=== PATIENT | female | born 1960 | race Native Hawaiian/Other Pacific Islander ===

== ENCOUNTER 2020-06-18 13:44 | Emergency (ER) | payer MEDICARE ==
--- NOTE | 2020-06-18 14:42 | Event Note ---
ED Screening Note Date of service: 06/18/20 Time: 14:41 ED Screening Note: Patient presents with bilateral plantar foot pain and an ulcer to the right lateral great toe. She is being followed by toddler guide Dr. Kulkarni. She reports pain is been increasing over the past day. This initial assessment/diagnostic orders/clinical plan/treatment(s) is/are subject to change based on patients health status, clinical progression and re- assessment by fellow clinical providers in the ED. Further treatment and workup at subsequent clinical providers discretion. Patient/guardian urged not to elope from the ED as their condition may be serious if not clinically assessed and managed. Initial orders include: CBC, CMP, CRP, foot x-ray
--- NOTE | 2020-06-18 15:27 | XRay Report ---
HISTORY:diabetic ulcer right great toe COMPARISON: None. TECHNIQUE: AP lateral and obliques views of both feet were obtained FINDINGS: Bones: No fracture or dislocation. Joint spaces: Maintained. Soft tissues: No significant abnormality. Additional findings: None. IMPRESSION: 1. No significant abnormality. Signer Name: Jean Carlos Larose MD Signed: 06/18/2020 3:23 PM Workstation Name: [id number]
[2020-06-18 15:54] LABS: Basophils % (Auto) 0.4 % (0.0-1.8); Eosinophils # (Auto) 0.1 K/mm3 (0.0-0.4); Eosinophils % (Auto) 0.7 % (0.0-4.3); Hematocrit 32.8 % (30.3-42.9); Hemoglobin 11.1 gm/dl (10.1-14.3); Lymphocytes # (Auto) 1.4 K/mm3 (1.2-5.4); Lymphocytes % (Auto) 14.4 % (13.4-35.0); Mean Corpuscular HGB Conc 34 % (30-34); Mean Corpuscular Volume 85 fl (79-97); Monocytes # (Auto) 0.6 K/mm3 (0.0-0.8); Monocytes % (Auto) 6.2 % (0.0-7.3); Platelet Count 398 K/mm3 (140-440); Red Blood Count 3.87 M/mm3 (3.65-5.03); Red Cell Distribution Width 13.1 % (13.2-15.2)
[2020-06-18 16:29] LABS: Alanine Aminotransferase 17 units/L (7-56); Albumin 3.8 g/dL (3.9-5); BUN/Creatinine Ratio 29; Blood Urea Nitrogen 23 mg/dL (7-17); Calcium 9.3 mg/dL (8.4-10.2); Hemolysis Index 3
[2020-06-18] MEDS ORDERED: INSULIN REGULAR, HUMAN 100 UNIT/ML 3ML VIAL SUB-Q ONE (16:37)
--- NOTE | 2020-06-18 16:40 | Emergency Department Report ---
HPI - General Chief Complaint: Extremity Problem,Nontraumatic Time Seen by Provider: 06/18/20 16:00 - HPI HPI: This is a 59-year-old female who presents to the emergency department with complaint of bilateral foot pain, left greater than right, that started this morning. She denies any swelling of the feet, rash, lesions. She denies any fall, trauma or obvious inciting injury. The patient has a history of diabetes, coronary artery disease with cardiac stents. She is currently being seen by her associate store leader, Dr. Kulkarni, and is taking antibiotics, secondary to a ulcer on her right great toe. Otherwise, the patient has not taken anything for symptoms prior to presentation today. The pain worsens when she is walking or bearing weight. No known alleviating factors. She denies any fever. No recent travel or sick contacts at home. ED Past Medical Hx - Past Medical History Previous Medical History?: Yes Hx Diabetes: Yes - Surgical History Past Surgical History?: Yes Additional Surgical History: Cardiac stents. - Medications Home Medications: Home Medications Medication Instructions Recorded Confirmed Last Taken Type Gabapentin 300 mg PO BID #12 cap 06/18/20 Unknown Rx ED Review of Systems ROS: Stated complaint: FOOT PAINS RT Other details as noted in HPI Comment: All other systems reviewed and negative Constitutional: denies: chills, fever Respiratory: denies: shortness of breath Cardiovascular: denies: chest pain Gastrointestinal: denies: abdominal pain, vomiting Musculoskeletal: arthralgia. denies: joint swelling Skin: denies: rash, lesions Neurological: denies: weakness, numbness Physical Exam - Physical Exam Physical Exam: GENERAL: The patient is well-developed well-nourished. HENT: Normocephalic. Atraumatic. Patient has moist mucous membranes. EYES: Extraocular motions are intact. NECK: Supple. Trachea is midline. CHEST/LUNGS: Clear to auscultation. There is no respiratory distress noted. HEART/CARDIOVASCULAR: Regular. There is no tachycardia. There is no murmur. ABDOMEN: Abdomen is soft, nontender. Patient has normal bowel sounds. SKIN: Skin is warm and dry. No appreciable edema or erythema. NEURO: The patient is awake, alert, and oriented. The patient is cooperative. The patient has no focal neurologic deficits. Normal speech. MUSCULOSKELETAL: There is reproducible tenderness to palpation to the bilateral feet. +2/4 dorsalis pedis pulse and capillary refill less than 2 seconds bilaterally. There is no limitation range of motion. ED Course - Reevaluation(s) Reevaluation #1: 06/18/20 19:53 Lab Results 06/18/20 06/18/20 Range/Units 15:25 15:25 WBC 9.9 (4.5-11.0) K/mm3 RBC 3.87 (3.65-5.03) M/mm3 Hgb 11.1 (10.1-14.3) gm/dl Hct 32.8 (30.3-42.9) % MCV 85 (79-97) fl MCH 29 (28-32) pg MCHC 34 (30-34) % RDW 13.1 L (13.2-15.2) % Plt Count 398 (140-440) K/mm3 Lymph % (Auto) 14.4 (13.4-35.0) % Preston % (Auto) 6.2 (0.0-7.3) % Eos % (Auto) 0.7 (0.0-4.3) % Baso % (Auto) 0.4 (0.0-1.8) % Lymph # (Auto) 1.4 (1.2-5.4) K/mm3 Preston # (Auto) 0.6 (0.0-0.8) K/mm3 Eos # (Auto) 0.1 (0.0-0.4) K/mm3 Baso # (Auto) 0.0 (0.0-0.1) K/mm3 Seg Neutrophils % 78.3 H (40.0-70.0) % Seg Neutrophils # 7.8 H (1.8-7.7) K/mm3 Sodium 136 L (137-145) mmol/L Potassium 4.8 (3.6-5.0) mmol/L Chloride 96.5 L (98-107) mmol/L Carbon Dioxide 30 (22-30) mmol/L Anion Gap 14 mmol/L BUN 23 H (7-17) mg/dL Creatinine 0.8 (0.6-1.2) mg/dL Estimated GFR > 60 ml/min BUN/Creatinine Ratio 29 % Glucose 361 H (65-100) mg/dL Calcium 9.3 (8.4-10.2) mg/dL Total Bilirubin < 0.20 (0.1-1.2) mg/dL AST 12 (5-40) units/L ALT 17 (7-56) units/L Alkaline Phosphatase 95 (35-129) units/L C-Reactive Protein 2.30 H (0.00-1.30) mg/dL Total Protein 7.2 (6.3-8.2) g/dL Albumin 3.8 L (3.9-5) g/dL Albumin/Globulin Ratio 1.1 % ED Medical Decision Making - Lab Data Result diagrams: 06/18/20 15:25 06/18/20 15:25 - Radiology Data Radiology results: image reviewed interpreted by me: X-ray of the bilateral feet does not show any fracture, dislocation, signs of osteomyelitis, or any other acute process. - Medical Decision Making This patient presents to the emergency department with complaint of bilateral foot pain with left greater than right. Patient appears neurovascularly intact. She has palpable dorsalis pedis pulses bilaterally, good capillary refill to the distal toes. There is no erythema, rash or lesion, appreciable edema, and this does not appear consistent with any DVT. Since there is good distal pulses and cap refill, this is not appear consistent with any acute arterial insufficiency. Given the patient's history of diabetes, I believe it may be consistent with diabetic and/or peripheral neuropathy. X-rays were done of the feet that does not show any fracture, dislocation or signs of osteomyelitis. The patient's labs are mostly unremarkable except for hyperglycemia with a blood sugar of about 360. There is no elevation in the anion gap and this does not appear consistent with diabetic ketoacidosis. Patient was given a dose of subcutaneous insulin. We discussed dietary changes including decreased sugar, carbohydrates and starches, and checking her blood sugar. She will continue with her normal diabetes medications. I am giving the patient a 7-day course of gabapentin, but the patient has been instructed that she needs to follow-up with her primary care physician and associate store leader. She will return to the emergency department with any worsening of her symptoms or with any acute distress. Critical Care Time: No Critical care attestation.: If time is entered above; I have spent that time in minutes in the direct care of this critically ill patient, excluding procedure time. ED Disposition Clinical Impression: Hyperglycemia due to diabetes mellitus Peripheral neuropathy Qualifiers: Peripheral neuropathy type: polyneuropathy, unspecified Qualified Code(s): G62.9 - Polyneuropathy, unspecified Disposition: DC- TO HOME OR SELFCARE Is pt being admited?: No Condition: Stable Instructions: Diabetic Nephropathy, Peripheral Neuropathy, Hyperglycemia, Diabetes Mellitus Type 2 in Adults (ED) Additional Instructions: Please follow-up with your primary care physician and associate store leader regarding your foot pain. I am starting you on a medication for peripheral neuropathy, nerve pain. This medication is called gabapentin. Return to the emergency department with any increased pain, swelling of your feet, change in color, numbness, development of fever, or with any acute distress. Take your diabetes medication as prescribed. Try to stay away from foods that are high in sugar, carbohydrates and starches. Keep a blood sugar log. You have been prescribed a medication that is sedating and therefore should not be taken prior to driving, working, and responsible for children and in no way should be mixed with alcohol of any quantity. Prescriptions: Gabapentin 300 mg PO BID #12 cap Referrals: PRIMARY CARE, [Primary Care Provider] - 3-5 Days FRANCO KULKARNI DPM [Staff Physician] - 3-5 Days Time of Disposition: 17:04 Print Language: NEPALI
[2020-06-18] MEDS ORDERED: INSULIN REGULAR, HUMAN 100 UNITS/1 ML ONE (17:00)
[2020-06-18] MEDS ORDERED: GABAPENTIN 300 MG CAP PO ONE (17:02)
[2020-06-18 17:24] VITALS: BP 126/84
== END 2020-06-18 17:13 | disposition home or self-care (01) ==
LOC: ED 13:44
DX: G62.9 Polyneuropathy, unspecified (principal); E11.65 Type 2 diabetes mellitus with hyperglycemia
CPT/HCPCS: 36415; 80053; 85025; 86140; 96372; 99283; J1815